=== PATIENT | male | born 1995 | race Caucasian/White ===

== ENCOUNTER 2017-01-14 22:37 | Emergency (ER) | payer BC ==
[2017-01-14] MEDS ORDERED: fentaNYL 100 MCG/2 ML INJ IVP ONE (23:33)
[2017-01-14] MEDS ORDERED: ONDANSETRON 4 MG/2 ML VIAL IVP ONE (23:33)
[2017-01-14] MEDS ORDERED: NS 1,000 ML IV ONE (23:33)
--- NOTE | 2017-01-14 23:34 | EDPHY ---
H & P Stated Complaint: R FLANK 1 HR PAIN WITH URINATION Time Seen by Provider: 01/14/17 23:23 HPI/ROS: Chief Complaint: Abdomen and back pain HPI: 21-year-old male began having pain in his right upper abdomen several hours ago which then radiated to his right flank. Does not have a history of the same. Pain is about a 7/10. There are no aggravating or alleviating factors. Not cannot find a position of comfort. No nausea vomiting or diarrhea. Did note some decreased urination is urine is been very dark. Did burn once this morning. No urethral discharge. No history of sexually transmitted diseases. No lower abdominal tenderness. No pain in his testicles or scrotum. It is dull in nature. He did take 3 Advil about 45 minutes prior to arrival. ROS: 10 point Review of Systems is negative except as noted in the HPI. PMH: None Medications: None Allergies: Cephalosporins Social History: No smoking, daily alcohol, occasional marijuana Family History: non-contributory Physical Exam: Gen: Awake, Alert, No Distress HEENT: Nose: no rhinorrhea Eyes: PERRLA, EOMI Mouth: Moist mucosa Neck: Supple, no JVD Chest: nontender, lungs clear to auscultation Heart: S1, S2 normal, no murmur Abd: Soft, mild right upper quadrant tenderness, no lower abdominal tenderness, no guarding Back: no CVA tenderness, no midline tenderness Ext: no edema, non-tender Skin: no rash Neuro: CN II-XII intact, Sensation grossly intact, Strength 5/5 in bilateral upper and lower extremities - Personal History Current Tetanus/Diphtheria Vaccine: Yes Current Tetanus Diphtheria and Acellular Pertussis (TDAP): Yes - Medical/Surgical History Hx Asthma: No Hx Chronic Respiratory Disease: No Hx Diabetes: No Hx Cardiac Disease: No Hx Renal Disease: No Hx Cirrhosis: No Hx Alcoholism: No Hx HIV/AIDS: No Hx Splenectomy or Spleen Trauma: No Other PMH: DENIES - Social History Smoking Status: Light smoker Constitutional: Initial Vital Signs Temperature (C) 36.9 C 01/14/17 22:45 Heart Rate 78 01/14/17 22:45 Respiratory Rate 18 01/14/17 22:45 Blood Pressure 148/94 H 01/14/17 22:45 O2 Sat (%) 97 01/14/17 22:45 O2 Delivery Mode Room Air Allergies/Adverse Reactions: Cephalosporins Allergy (Verified 01/14/17 22:47) Home Medications: Medication Instructions Recorded NK [No Known Home Meds] 01/14/17 Medical Decision Making - Diagnostics Imaging Results: CT scan abdomen pelvis shows a 2 mm right UVJ stone with mild right hydronephrosis as interpreted by the radiologist. Imaging: Discussed imaging studies w/ scallop raker Radiologist ED Course/Re-evaluation: Patient is improved after medications. He is tolerating p. o.. Will discharge with follow with primary care physician. Stone is the size she easily passed. Is likely he has already passed it given the findings on the CT scan. - Data Points Laboratory Results: Laboratory Results 01/14/17 23:50 01/14/17 23:50 01/14/17 01/14/17 01/14/17 23:50 23:50 23:00 WBC 11.59 10^3/uL H 10^3/uL (3.80-9.50) RBC 5.31 10^6/uL 10^6/uL (4.40-6.38) Hgb 16.8 g/dL g/dL (13.7-17.5) Hct 47.4 % % (40.0-51.0) MCV 89.3 fL fL (81.5-99.8) MCH 31.6 pg pg (27.9-34.1) MCHC 35.4 g/dL g/dL (32.4-36.7) RDW 12.2 % % (11.5-15.2) Plt Count 227 10^3/uL 10^3/uL (150-400) MPV 10.6 fL fL (8.7-11.7) Neut % (Auto) 80.4 % H % (39.3-74.2) Lymph % (Auto) 12.1 % L % (15.0-45.0) [place] % (Auto) 4.7 % % (4.5-13.0) Eos % (Auto) 1.9 % % (0.6-7.6) Baso % (Auto) 0.6 % % (0.3-1.7) Nucleat RBC Rel Count 0.0 % % (0.0-0.2) Absolute Neuts (auto) 9.31 10^3/uL H 10^3/uL (1.70-6.50) Absolute Lymphs (auto) 1.40 10^3/uL 10^3/uL (1.00-3.00) Absolute Monos (auto) 0.55 10^3/uL 10^3/uL (0.30-0.80) Absolute Eos (auto) 0.22 10^3/uL 10^3/uL (0.03-0.40) Absolute Basos (auto) 0.07 10^3/uL 10^3/uL (0.02-0.10) Absolute Nucleated RBC 0.00 10^3/uL 10^3/uL (0-0.01) Immature Gran % 0.3 % % (0.0-1.1) Immature Gran # 0.04 10^3/uL 10^3/uL (0.00-0.10) Sodium 142 mEq/L mEq/L (134-144) Potassium 4.4 mEq/L mEq/L (3.5-5.2) Chloride 105 mEq/L mEq/L (97-110) Carbon Dioxide 25 mEq/l mEq/l (22-31) Anion Gap 12 mEq/L mEq/L (8-16) BUN 12 mg/dL mg/dL (7-23) Creatinine 1.3 mg/dL mg/dL (0.7-1.3) Estimated GFR > 60 Glucose 175 mg/dL H mg/dL (70-100) Calcium 9.9 mg/dL mg/dL (8.5-10.4) Total Bilirubin 0.8 mg/dL mg/dL (0.1-1.4) Conjugated Bilirubin 0.4 mg/dL mg/dL (0.0-0.5) Unconjugated Bilirubin 0.4 mg/dL mg/dL (0.0-1.1) AST 25 IU/L IU/L (17-59) ALT 42 IU/L IU/L (21-72) Alkaline Phosphatase 129 IU/L H IU/L (38-126) Total Protein 8.1 g/dL g/dL (6.3-8.2) Albumin 4.9 g/dL g/dL (3.5-5.0) Lipase 31.0 IU/L IU/L (23-300) Urine Color YELLOW Urine Appearance HAZY Urine pH 5.0 (5.0-7.5) Ur Specific [place] 1.032 H (1.002-1.030) Urine Protein 1+ H (NEGATIVE) Urine Ketones TRACE H (NEGATIVE) Urine Blood 3+ H (NEGATIVE) Urine Nitrate NEGATIVE (NEGATIVE) Urine Bilirubin NEGATIVE (NEGATIVE) Urine Urobilinogen 2.0 EU H EU (0.2-1.0) Ur Leukocyte Esterase NEGATIVE (NEGATIVE) Urine RBC 50-182 /hpf H /hpf (0-3) Urine WBC 1-3 /hpf /hpf (0-3) Ur Epithelial Cells TRACE /lpf /lpf (NONE-1+) Calcium Oxalate Crystal PRESENT /hpf /hpf (NONE-1+) Urine Mucus 2+ /lpf H /lpf (NONE-1+) Urine Glucose NEGATIVE (NEGATIVE) Medications Given: Discontinued Medications Fentanyl (Sublimaze) 50 mcg IVP EDNOW ONE Stop: 01/14/17 23:34 Last Admin: 01/14/17 23:51 Dose: 50 mcg Sodium Chloride (Ns) 1,000 mls @ 0 mls/hr IV ONCE ONE PRN Reason: Wide Open Stop: 01/14/17 23:34 Last Admin: 01/14/17 23:48 Dose: 1,000 mls Ondansetron HCl (Zofran) 4 mg IVP EDNOW ONE Stop: 01/14/17 23:34 Last Admin: 01/14/17 23:50 Dose: 4 mg Departure - Departure Disposition: Home, Routine, Self-Care Clinical Impression: Kidney stone Condition: Good Instructions: Kidney Stones (ED) Additional Instructions: You may take ibuprofen 600 mg every 8 hours as needed for pain. Follow with primary care physician in 2-3 days if symptoms are not improving. Referrals: NONE *PRIMARY CARE P,. [Primary Care Provider] - As per Instructions Alida Gleason MD [Medical Doctor] - As per Instructions
[2017-01-14 23:44] LABS: COLOR YELLOW; LEUKOCYTE ESTERASE,URINE NEGATIVE (NEGATIVE); NITRITE,URINE NEGATIVE (NEGATIVE)
[2017-01-14 23:56] LABS: % IMMATURE GRANULYOCYTES 0.3 % (0.0-1.1); ABSOLUTE IMMATURE GRANULOCYTES 0.04 10^3/uL (0.00-0.10); ADD DIFF? NO; ADD MORPH? NO; ADD SCAN? NO; ATYPICAL LYMPHOCYTE FLAG 10 (0-99); FRAGMENT RBC FLAG 0 (0-99); HEMATOCRIT 47.4 % (40.0-51.0); HEMOGLOBIN 16.8 g/dL (13.7-17.5); LEFT SHIFT FLG 0 (0-99); LIPEMIA HEMOLYSIS FLAG 90 (0-99); MEAN CELL HEMOGLOBIN 31.6 pg (27.9-34.1); MEAN CELL HEMOGLOBIN CONCENTR. 35.4 g/dL (32.4-36.7); MEAN CELL VOLUME 89.3 fL (81.5-99.8); MEAN PLATELET VOLUME 10.6 fL (8.7-11.7); PLATELET CLUMPS FLAG 10 (0-99); PLATELET COUNT 227 10^3/uL (150-400); RED BLOOD CELL COUNT 5.31 10^6/uL (4.40-6.38); RED CELL DISTRIBUTION WIDTH 12.2 % (11.5-15.2)
[2017-01-15 00:21] VITALS: RESP 16
[2017-01-15 00:32] LABS: MUCUS 2+ /lpf (NONE-1+); RBC,URINE 50-182 /hpf (0-3)
[2017-01-15 00:34] LABS: ALANINE AMINOTRANSFERASE 42 IU/L (21-72); ALBUMIN 4.9 g/dL (3.5-5.0); ALKALINE PHOSPHATASE 129 IU/L (38-126); ANION GAP 12 mEq/L (8-16); ASPARTATE AMINOTRANSFERASE 25 IU/L (17-59); BILIRUBIN,TOTAL 0.8 mg/dL (0.1-1.4); BILIRUBIN-CONJUGATED 0.4 mg/dL (0.0-0.5); BILIRUBIN-UNCONJUGATED 0.4 mg/dL (0.0-1.1); CALCIUM 9.9 mg/dL (8.5-10.4); CARBON DIOXIDE 25 mEq/l (22-31); CHLORIDE 105 mEq/L (97-110); CREATININE 1.3 mg/dL (0.7-1.3); GLOMERULAR FILTRATION RATE > 60; GLUCOSE 175 mg/dL (70-100); POTASSIUM 4.4 mEq/L (3.5-5.2); SODIUM 142 mEq/L (134-144); TOTAL PROTEIN 8.1 g/dL (6.3-8.2)
[2017-01-15] MEDS ORDERED: KETOROLAC 15 MG/1 ML SDV IVP ONE (00:50)
[2017-01-15 01:19] VITALS: BP 121/71; PULSE 68; TEMP 98.1; O2SAT 97
== END 2017-01-15 01:18 | disposition home or self-care (01) ==
DX: N20.0 Calculus of kidney (principal); F17.200 Nicotine dependence, unspecified, uncomplicated
CPT/HCPCS: 96374; J1885; J2405; J3010